=== PATIENT | male | born 1965 | race Caucasian/White ===

== ENCOUNTER 2019-02-01 21:52 | Emergency (ER) | payer OTHER ==
[~2019-02-01] VITALS: Ht 190.5 cm; Wt 80.7 kg
[~2019-02-01 21:52] MED LIST: ACET500; AMOX500 PO; ASPI325; CEPH500 PO; CYCL10 PO; DICY20 PO; HYDACE5 PO; HYDACE7.5; IBUP400 PO; IBUP800 PO; LORA1 PO; LORA2 PO; METR500 PO; OXYACE5T PO; OXYACE7.5T PO; PENVK250 PO; PENVK500 PO; PRED20 PO; PROACE100 PO; PROM25 PO; RANI150 PO; RXLORA1 PO; RXOXYACE PO; RXTRAM50 PO; SUBOXONE 12 MG1 EACH; SUBOXONE 8 MG-1 EACH SL; SULTRIDS PO; TRAM50 PO
== END 2019-02-01 23:34 | disposition left against medical advice (07) ==
LOC: ER 21:52
DX: Z53.21 Procedure and treatment not carried out due to patient leaving prior to being seen by health care provider (principal); R07.81 Pleurodynia
CPT/HCPCS: 71101

== ENCOUNTER 2019-11-22 15:42 | Inpatient (IN) | payer OTHER ==
[~2019-11-22] VITALS: Ht 190.5 cm; Wt 78.2 kg
[2019-11-22 17:18] LABS: BASOPHILS ABSOLUTE AUTO 0.08 K/mm3 (0.00-0.23); BASOPHILS PERCENT AUTO 1 % (0-2); EOSINOPHILS ABSOLUTE AUTO 0.11 K/mm3 (0.00-0.68); EOSINOPHILS PERCENT AUTO 1 % (0-6); Hematocrit 52.8 % (37.0-53.0); Hemoglobin 17.3 g/dL (13.5-17.5); IMMATURE GRAN ABSOLUTE AUTO 0.03 K/mm3 (0.00-0.10); IMMATURE GRAN PERCENT AUTO 0 % (0-1); LYMPHOCYTES PERCENT AUTO 16 % (21-46); MONOCYTES PERCENT AUTO 11 % (4-13); Mean Corpuscular HGB 31.6 pg (26.0-34.0); Mean Corpuscular HGB Conc 32.8 g/dL (31.5-36.5); Mean Corpuscular Volume 96 fL (80-100); Mean Platelet Volume 10.3 fL (9.1-12.4); NEUTROPHILS ABSOLUTE AUTO 7.35 K/mm3 (1.96-9.15); NEUTROPHILS PERCENT AUTO 72 % (41-73); Platelet Count 231 K/mm3 (150-400); RDW Coefficient Variation 15.8 % (11.7-14.2); RDW Standard Deviation 55.1 fL (35.1-46.3); Red Blood Cell Count 5.48 M/mm3 (4.30-5.90); White Blood Cell Count 10.27 K/mm3 (4.00-11.30)
[2019-11-22 17:31] LABS: Creatine Kinase MB 23.1 ng/mL (0.0-3.6); Creatine Kinase MB Index 6.3 (0.0-4.0)
[2019-11-22 18:01] LABS: U Amphetamine Screen DETECTED; U Barbituate Screen Not Detected; U Benzodiazapine Screen Not Detected; U Buprenorphine Screen Not Detected; U Cannabinoids Screen Not Detected; U Cocaine Screen Not Detected; U Methadone Screen Not Detected; U Methamphetamine Screen DETECTED; U Opiates Screen Not Detected; U Oxycodone Screen Not Detected; U Propoxyphene Screen Not Detected
--- NOTE | 2019-11-22 19:13 | NUR ---
ADMIT NOTE PT REPORT RECEIVED. PT ARRIVED VIA GURNEY ACCOMAPNIED BY RN. PT ALERT AND ORIENTED. ANXIOUS AND SOB. PT ABLE TO TRANSFER SELF TO BED SBA. GAIT STEADY. VSS. PT EXPRESSING EXTREME ANXIETY. CALLED DR MUNIZ. ORDER RECEIVED FOR ATIVAN. RELATED TO DR MUNIZ THAT ECHO AND NUC. MED HAD ALREADY LEFT FOR TODAY. PT IS UNABLE TO LAY FLAT AT ALL. FAN PROVIDED AT BEDSIDE FOR COMFORT. BROTHER HERE TO SEE HIM. VOIDING WELL PER URINAL. ATE DINNER. CONTINUE POT.
--- NOTE | 2019-11-22 19:15 | NUR ---
Assumed care Pt presents in bed with labored breathing, SOB, tachypnea. BP stable, HR is sinus tach at 100-110. pt with moderate anxiety, fidgety and restless. Brother at bedside with pt. 0.5mg ativan previously given by day shift per orders, pt remains restless and anxious after medication administration. Pt expressing tearful regret for using meth to this RN. Therapeutic communication provided. Pt educated on pursed lip breathing and techniques to slow resp rate. Saturations maintaining >93% on 2L NC. See shift assessmet for detailed assessment.
--- NOTE | 2019-11-22 20:15 | NUR ---
RT in room assessing pt. Bipap placed on pt d/t continued increased work of breathing and tachypnea. Settings 09/10 at 21 fio2.
--- NOTE | 2019-11-22 20:30 | NUR ---
Pt not tolerating BIPAP d/t anxiety. NC placed back on pt. 0.5 mg ativan given per orders. RT aware.
--- NOTE | 2019-11-22 22:39 | NUR ---
Pt with continued work of breathing. Lungs clear throughout, end exp wheeze noted. RT called and made aware. Pt sleeping on and off since ativan administration Pt desaturates to 85% when sleep, o2 increased to 3.5L. Will continue to montior.
--- NOTE | 2019-11-22 23:09 | NUR ---
Provider called and made aware of change in pt condition, new crackles to bilat bases, wheezes throughout, work of breathing. Orders received for 20mg IV lasix, 1 mg Ativan and attempting to place pt on BIPAP again with RT. Will continue to monitor.
--- NOTE | 2019-11-22 23:46 | NUR ---
Pt currently resting on BIPAP, eyes closed. 18G PIV placed to LFA, S/L.
[2019-11-23 02:08] LABS: BASOPHILS ABSOLUTE AUTO 0.08 K/mm3 (0.00-0.23); BASOPHILS PERCENT AUTO 1 % (0-2); EOSINOPHILS PERCENT AUTO 2 % (0-6); Hemoglobin 17.6 g/dL (13.5-17.5); IMMATURE GRAN ABSOLUTE AUTO 0.04 K/mm3 (0.00-0.10); IMMATURE GRAN PERCENT AUTO 0 % (0-1); LYMPHOCYTES ABSOLUTE AUTO 1.62 K/mm3 (0.84-5.20); LYMPHOCYTES PERCENT AUTO 14 % (21-46); MONOCYTES PERCENT AUTO 10 % (4-13); Mean Corpuscular HGB 31.8 pg (26.0-34.0); Mean Corpuscular HGB Conc 33.8 g/dL (31.5-36.5); Mean Corpuscular Volume 94 fL (80-100); NEUTROPHILS ABSOLUTE AUTO 8.27 K/mm3 (1.96-9.15); NEUTROPHILS PERCENT AUTO 73 % (41-73); Platelet Count 222 K/mm3 (150-400); RDW Coefficient Variation 15.8 % (11.7-14.2); RDW Standard Deviation 53.7 fL (35.1-46.3); Red Blood Cell Count 5.54 M/mm3 (4.30-5.90); White Blood Cell Count 11.31 K/mm3 (4.00-11.30)
[2019-11-23 02:25] LABS: Bun/Creatinine Ratio 27.6 (12.0-20.0); Calcium, Blood 8.3 mg/dL (8.5-10.1); Creatinine, Blood 1.52 mg/dL (0.60-1.20); Potassium, Blood 3.6 mmol/L (3.5-5.5)
--- NOTE | 2019-11-23 06:09 | NUR ---
Shift Summary Pt with VSS throughout shift. Moderate anxiety at start of shift. 1mg ativan given and pt able to sleep on and off throughout night. Pt with continued labored breathing pattern that is more pronounced when awake. Breathing pattern has improved since approx 2330. Wheezes throughout lung whitman, crackles have cleared from bases with lasix administration and BIPAP placement. Pt tolerated BIPAP for approx 8 hours. See nurse notes for documentation on respiratory events. Overall respiratory status has improved related to decreased work of breathing, respiratory rate wnl, oxygenation Pt voiding in urinal at bedside. Will continue to monitor until day RN assumes care
--- NOTE | 2019-11-23 07:55 | NUR ---
AM NOTE... ASSUMED CARE OF PT APROX 0700, PT IS A&Ox4 AND WAS ADMITTED FOR NEW ONSET CHF. PT IS IN ST AT 110. TRACE EDEMA IS NOTED TO THE BLE. L/S CLEAR T/O PT IS ON 3.5L NC AT 95%. RR 20-24 EVEN BUT LABORED W/ACCESSORY MUSCLE USE. BT PRESENT AND HYPOACTIVE ABD IS SOFT AND NONTENDER TO PALP. PT DENIES CHEST PAIN AT THIS TIME BUT C/O OF 8/10 LEFT BACK/FLANK PAIN THAT STARTED ON ADMIT PER THE PT. CARDIOLOGY PROVIDER AT THE BEDSIDE, PT AND PROVIDER SIGNED CONSENT FOR ANGIO THIS AM. PT STATED HIS UNDERSTANDING OF PROCEDURE. PT IS NPO AT THIS TIME. WILL CONTINUE TO MONITOR.
[2019-11-23 08:48] LABS: International Normalized Ratio 1.04; Prothrombin Time Results 11.1 Sec (9.7-11.5)
--- NOTE | 2019-11-23 10:50 | NUR ---
PT UPDATE... PT CALLED THIS RN INTO THE ROOM, STATING THAT HE WAS "DEPRESSED, ANXIOUS, HUNGRY AND I NEED A SMOKE." THIS RN OFFERED THE PT ORDERED ATIVAN AND A NICOTINE PATCH, PT DECLINED BOTH. THE PT THEN STATED "I THINK I AM JUST GOING TO LEAVE." THIS RN EDUCATED THE PT ON HIS RIGHTS TO REFUSE THE PROCEDURE THIS AFTERNOON AND HIS RIGHT TO LEAVE AMA. PT STATED "IF THEY DON'T TAKE ME FOR MY PROCEDURE BY 12PM I AM LEAVING." CHARGE NURSE NOTIFIED. WILL CONTINUE TO MONITOR.
--- NOTE | 2019-11-23 12:58 | NUR ---
Patient is resting in bed but easily awakens to the sound of his name. Patient immediately tells me that he is thinking of leaving AMA because he is so frustrated that he can't eat or go outside to smoke. Patient verbalizes how angry he is and so we talk about his options and what is best for him at present. I then redirect to spiritual questions. Patient has spiritual distress from feeling far from God, admittedly, from his own doing. We talk about how to be right with God and how to have peace about the afterlife and the here and now. I ask patient if I could pray for him and states that that would be nice. I gladly provide prayer. Patient is very tearful during the prayer and shows signs of improved peace and reduced aggitation. Patient, at least for the moment is agrreeable to stay and wait for his ECHO. I will continue to remain available to patient and family.
[2019-11-23] MEDS ORDERED: ASPI81CH PO (15:49)
[2019-11-23] MEDS ORDERED: AMLO5 PO (15:49)
[2019-11-23] MEDS ORDERED: ACET325 PO (15:49)
[2019-11-23] MEDS ORDERED: LOSA25 PO (15:50)
[2019-11-23] MEDS ORDERED: LIPITOR80 MG PO (15:50)
[2019-11-23] MEDS ORDERED: METO25ER PO (15:51)
[2019-11-23] MEDS ORDERED: Nicoderm Cq1 EAC1 TOP (15:52)
[2019-11-23] MEDS ORDERED: TORSE20 PO (15:53)
== END 2019-11-23 16:22 | disposition left against medical advice (07) | DRG 280 ==
LOC: ER 15:42 → PCU 16:31
PROVIDERS: Emergency Medicine; Internal Medicine Cardiovascular Disease; ADMIT Family Medicine
DX: I21.4 Non-ST elevation (NSTEMI) myocardial infarction (principal); I50.21 Acute systolic (congestive) heart failure; I13.0 Hypertensive heart and chronic kidney disease with heart failure and stage 1 through stage 4 chronic kidney disease, or unspecified chronic kidney disease; F15.10 Other stimulant abuse, uncomplicated; F17.210 Nicotine dependence, cigarettes, uncomplicated; G47.33 Obstructive sleep apnea (adult) (pediatric); N18.3 Chronic kidney disease, stage 3 (moderate)
CPT/HCPCS: 36415; 78582; 80048; 82550; 82553; 84484; 85025; 85610; 85730; 86850; 86900; 86901; 93005; 93010; 94660; 94762; 96374; 99285-25; A9270; A9270-GY; A9540; A9558; C8929; J1644; J1650; J1940; J2060; J7030; Q9957

== ENCOUNTER 2020-08-11 22:53 | Emergency (ER) | payer OTHER ==
[~2020-08-11] VITALS: Ht 190.5 cm; Wt 95.2 kg
[~2020-08-11 22:53] MED LIST changes: +ACET325 PO; +AMLO5 PO; +ASPI81CH PO; +B-1100 M1 PO; +FOLI1 PO; +Hair, Skin & N1 EACH PO; +LIPITOR80 MG PO; +LOSA25 PO; +METO25ER PO; +Nicoderm Cq1 EAC1 TOP; +ONDA4ODT MM; +SPIR25 PO; +TORSE20 PO
[2020-08-12 01:58] LABS: BASOPHILS ABSOLUTE AUTO 0.07 K/mm3 (0.00-0.23); BASOPHILS PERCENT AUTO 1 % (0-2); EOSINOPHILS ABSOLUTE AUTO 0.08 K/mm3 (0.00-0.68); EOSINOPHILS PERCENT AUTO 1 % (0-6); Hematocrit 50.6 % (37.0-53.0); Hemoglobin 16.4 g/dL (13.5-17.5); IMMATURE GRAN ABSOLUTE AUTO 0.05 K/mm3 (0.00-0.10); IMMATURE GRAN PERCENT AUTO 1 % (0-1); LYMPHOCYTES ABSOLUTE AUTO 1.22 K/mm3 (0.84-5.20); LYMPHOCYTES PERCENT AUTO 12 % (21-46); MONOCYTES ABSOLUTE AUTO 1.62 K/mm3 (0.16-1.47); MONOCYTES PERCENT AUTO 16 % (4-13); Mean Corpuscular HGB 27.2 pg (26.0-34.0); Mean Corpuscular HGB Conc 32.4 g/dL (31.5-36.5); Mean Corpuscular Volume 84 fL (80-100); Mean Platelet Volume 10.1 fL (9.1-12.4); NEUTROPHILS ABSOLUTE AUTO 7.38 K/mm3 (1.96-9.15); NEUTROPHILS PERCENT AUTO 71 % (41-73); Platelet Count 253 K/mm3 (150-400); RDW Coefficient Variation 19.9 % (11.7-14.2); RDW Standard Deviation 57.4 fL (35.1-46.3); Red Blood Cell Count 6.03 M/mm3 (4.30-5.90); White Blood Cell Count 10.42 K/mm3 (4.00-11.30)
[2020-08-12 02:20] LABS: Albumin, Blood 3.4 g/dL (3.4-5.0); Bilirubin, Total 2.1 mg/dL (0.1-1.0); Calcium, Blood 8.6 mg/dL (8.5-10.1); Creatinine, Blood 1.78 mg/dL (0.60-1.20); Globulin, Blood 3.5 g/dL (2.2-4.0); Potassium, Blood 4.4 mmol/L (3.5-5.5); Total Protein, Blood 6.9 g/dL (6.4-8.2)
== END 2020-08-12 02:32 | disposition home or self-care (01) ==
LOC: ER 22:53
PROVIDERS: Emergency Medicine
DX: N50.89 Other specified disorders of the male genital organs (principal); R60.0 Localized edema; I50.9 Heart failure, unspecified; F17.210 Nicotine dependence, cigarettes, uncomplicated; Z88.5 Allergy status to narcotic agent; Z88.0 Allergy status to penicillin; Z88.6 Allergy status to analgesic agent; Z79.82 Long term (current) use of aspirin; Z79.899 Other long term (current) drug therapy
CPT/HCPCS: 36415; 80053; 83880; 85025; 99284

== ENCOUNTER 2020-08-15 01:01 | Emergency (ER) | payer OTHER ==
[~2020-08-15] VITALS: Ht 190.5 cm; Wt 83.9 kg
[2020-08-15 02:16] LABS: BASOPHILS ABSOLUTE AUTO 0.07 K/mm3 (0.00-0.23); BASOPHILS PERCENT AUTO 1 % (0-2); EOSINOPHILS ABSOLUTE AUTO 0.31 K/mm3 (0.00-0.68); EOSINOPHILS PERCENT AUTO 3 % (0-6); Hematocrit 51.4 % (37.0-53.0); Hemoglobin 16.2 g/dL (13.5-17.5); IMMATURE GRAN ABSOLUTE AUTO 0.03 K/mm3 (0.00-0.10); IMMATURE GRAN PERCENT AUTO 0 % (0-1); LYMPHOCYTES ABSOLUTE AUTO 1.08 K/mm3 (0.84-5.20); LYMPHOCYTES PERCENT AUTO 11 % (21-46); MONOCYTES ABSOLUTE AUTO 1.52 K/mm3 (0.16-1.47); MONOCYTES PERCENT AUTO 15 % (4-13); Mean Corpuscular HGB Conc 31.5 g/dL (31.5-36.5); Mean Corpuscular Volume 86 fL (80-100); Mean Platelet Volume 9.6 fL (9.1-12.4); NEUTROPHILS ABSOLUTE AUTO 7.01 K/mm3 (1.96-9.15); NEUTROPHILS PERCENT AUTO 70 % (41-73); Platelet Count 229 K/mm3 (150-400); RDW Coefficient Variation 20.1 % (11.7-14.2); RDW Standard Deviation 60.1 fL (35.1-46.3); Red Blood Cell Count 5.99 M/mm3 (4.30-5.90); White Blood Cell Count 10.02 K/mm3 (4.00-11.30)
[2020-08-15 02:37] LABS: Albumin, Blood 3.1 g/dL (3.4-5.0); Albumin/Globulin Ratio 0.8 (0.8-1.8); Bilirubin, Total 1.3 mg/dL (0.1-1.0); Bun/Creatinine Ratio 30.5 (12.0-20.0); Calcium, Blood 8.3 mg/dL (8.5-10.1); Creatinine, Blood 1.54 mg/dL (0.60-1.20); Globulin, Blood 3.8 g/dL (2.2-4.0); Potassium, Blood 3.8 mmol/L (3.5-5.5); Total Protein, Blood 6.9 g/dL (6.4-8.2); Troponin I 0.126 ng/mL (0.000-0.040)
[2020-08-15] MEDS ORDERED: Cleocin HCl300 MG PO (03:06)
== END 2020-08-15 03:14 | disposition home or self-care (01) ==
LOC: ER 01:01
PROVIDERS: Emergency Medicine
DX: L03.116 Cellulitis of left lower limb (principal); L03.115 Cellulitis of right lower limb; R60.0 Localized edema; I50.9 Heart failure, unspecified; F17.210 Nicotine dependence, cigarettes, uncomplicated; Z79.82 Long term (current) use of aspirin; Z88.0 Allergy status to penicillin; Z88.6 Allergy status to analgesic agent; Z88.5 Allergy status to narcotic agent; Z79.899 Other long term (current) drug therapy
CPT/HCPCS: 36415; 71046; 80053; 84484; 85025; 93005; 93010; 96365; 96375; 99284-25

== ENCOUNTER 2021-05-12 22:34 | Emergency (ER) | payer OTHER ==
[~2021-05-12] VITALS: Ht 190.5 cm; Wt 90.7 kg
[~2021-05-12 22:34] MED LIST changes: +Cleocin HCl300 MG PO
== END 2021-05-13 00:06 | disposition left against medical advice (07) ==
LOC: ER 22:34
DX: R06.02 Shortness of breath (principal); I51.7 Cardiomegaly; Z53.20 Procedure and treatment not carried out because of patient's decision for unspecified reasons
CPT/HCPCS: 71046

== ENCOUNTER 2021-06-28 12:05 | Inpatient (IN) | payer OTHER ==
[~2021-06-28] VITALS: Ht 190.5 cm; Wt 105.5 kg
[~2021-06-28 12:05] MED LIST changes: -AMLO5 PO; -FOLI1 PO; -LOSA25 PO; -TORSE20 PO
[2021-06-28 12:38] LABS: BASOPHILS ABSOLUTE AUTO 0.04 K/mm3 (0.00-0.23); BASOPHILS PERCENT AUTO 0 % (0-2); EOSINOPHILS PERCENT AUTO 0 % (0-6); Hematocrit 46.3 % (37.0-53.0); Hemoglobin 15.6 g/dL (13.5-17.5); IMMATURE GRAN ABSOLUTE AUTO 0.08 K/mm3 (0.00-0.10); IMMATURE GRAN PERCENT AUTO 1 % (0-1); LYMPHOCYTES ABSOLUTE AUTO 0.46 K/mm3 (0.84-5.20); LYMPHOCYTES PERCENT AUTO 3 % (21-46); MONOCYTES ABSOLUTE AUTO 1.92 K/mm3 (0.16-1.47); MONOCYTES PERCENT AUTO 12 % (4-13); Mean Corpuscular HGB 26.5 pg (26.0-34.0); Mean Corpuscular HGB Conc 33.7 g/dL (31.5-36.5); Mean Corpuscular Volume 79 fL (80-100); Mean Platelet Volume 9.9 fL (9.1-12.4); NEUTROPHILS ABSOLUTE AUTO 14.17 K/mm3 (1.96-9.15); NEUTROPHILS PERCENT AUTO 85 % (41-73); Platelet Count 300 K/mm3 (150-400); RDW Coefficient Variation 20.9 % (11.7-14.2); RDW Standard Deviation 54.9 fL (35.1-46.3); Red Blood Cell Count 5.89 M/mm3 (4.30-5.90); White Blood Cell Count 16.67 K/mm3 (4.00-11.30)
[2021-06-28 12:55] LABS: Albumin/Globulin Ratio 0.8 (0.8-1.8); Bilirubin, Total 4.3 mg/dL (0.1-1.0); Bun/Creatinine Ratio 35.9 (12.0-20.0); Creatinine, Blood 1.92 mg/dL (0.60-1.20); Globulin, Blood 3.6 g/dL (2.2-4.0); Potassium, Blood 4.1 mmol/L (3.5-5.5); Total Protein, Blood 6.6 g/dL (6.4-8.2)
[2021-06-28] MEDS ORDERED: AMLO5 PO (13:04)
[2021-06-28] MEDS ORDERED: FOLI1 PO (13:04)
[2021-06-28] MEDS ORDERED: LOSA25 PO (13:04)
[2021-06-28] MEDS ORDERED: TORSE20 PO (13:04)
[2021-06-28 16:18] LABS: SARS-Cov-2 (COVID-19) PCR, MMC NEGATIVE (NEGATIVE)
[2021-06-28 17:11] LABS: Source, Urine Clean Catch
[2021-06-28 17:26] LABS: Appearance, Urine Clear (Clear); Color, Urine Yellow (P-Yellow)
[2021-06-28 17:27] LABS: Bilirubin, Urine Neg (Neg); Blood, Urine Neg (Neg); Glucose Qualitative, Urine Neg (Neg); Ketones, Urine Neg (Neg); Leukocyte Esterase, Urine Neg (Neg); Nitrite, Urine Neg (Neg); Protein, Urine Neg (Neg); Specific Gravity, Urine 1.015 (1.003-1.022); Urobilinogen, Urine NORM (Normal)
[2021-06-28 22:02] LABS: Bun/Creatinine Ratio 36.6 (12.0-20.0); Calcium, Blood 9.3 mg/dL (8.5-10.1); Creatinine, Blood 1.94 mg/dL (0.60-1.20); Magnesium, Blood 2.6 mg/dL (1.6-2.4); Phosphorus, Blood 5.6 mg/dL (2.5-4.9); Potassium, Blood 3.9 mmol/L (3.5-5.5)
[2021-06-28 22:04] LABS: International Normalized Ratio 1.81; Prothrombin Time Results 18.9 Sec (9.7-11.5)
[2021-06-29 00:19] LABS: U Amphetamine Screen DETECTED; U Barbituate Screen Not Detected; U Benzodiazapine Screen Not Detected; U Buprenorphine Screen Not Detected; U Cannabinoids Screen Not Detected; U Cocaine Screen Not Detected; U Methadone Screen Not Detected; U Methamphetamine Screen DETECTED; U Opiates Screen Not Detected; U Oxycodone Screen Not Detected; U Phencyclidine Screen Not Detected; U Propoxyphene Screen Not Detected
[2021-06-29 04:34] LABS: BASOPHILS ABSOLUTE AUTO 0.05 K/mm3 (0.00-0.23); BASOPHILS PERCENT AUTO 0 % (0-2); EOSINOPHILS ABSOLUTE AUTO 0.01 K/mm3 (0.00-0.68); EOSINOPHILS PERCENT AUTO 0 % (0-6); Hematocrit 46.9 % (37.0-53.0); Hemoglobin 15.3 g/dL (13.5-17.5); IMMATURE GRAN ABSOLUTE AUTO 0.04 K/mm3 (0.00-0.10); IMMATURE GRAN PERCENT AUTO 0 % (0-1); LYMPHOCYTES ABSOLUTE AUTO 0.57 K/mm3 (0.84-5.20); LYMPHOCYTES PERCENT AUTO 4 % (21-46); MONOCYTES ABSOLUTE AUTO 1.86 K/mm3 (0.16-1.47); MONOCYTES PERCENT AUTO 12 % (4-13); Mean Corpuscular HGB 26.9 pg (26.0-34.0); Mean Corpuscular HGB Conc 32.6 g/dL (31.5-36.5); Mean Corpuscular Volume 83 fL (80-100); Mean Platelet Volume 9.7 fL (9.1-12.4); NEUTROPHILS ABSOLUTE AUTO 12.58 K/mm3 (1.96-9.15); NEUTROPHILS PERCENT AUTO 83 % (41-73); Platelet Count 264 K/mm3 (150-400); RDW Coefficient Variation 21.2 % (11.7-14.2); RDW Standard Deviation 58.6 fL (35.1-46.3); Red Blood Cell Count 5.68 M/mm3 (4.30-5.90); White Blood Cell Count 15.11 K/mm3 (4.00-11.30)
[2021-06-29 04:58] LABS: Albumin, Blood 2.8 g/dL (3.4-5.0); Albumin/Globulin Ratio 0.7 (0.8-1.8); Bilirubin, Total 4.9 mg/dL (0.1-1.0); Bun/Creatinine Ratio 35.5 (12.0-20.0); Calcium, Blood 9.2 mg/dL (8.5-10.1); Globulin, Blood 4.2 g/dL (2.2-4.0); Potassium, Blood 4.2 mmol/L (3.5-5.5)
[2021-06-29 10:35] LABS: Automated BF RBC Count 0.015 M/mm3 (0-0); Automated BF WBC Count 0.193 K/mm3 (0-999); Body Fluid WBC Count 193 /mm3 (0-999); RBC Count, Body Fluid 15000 /mm3 (0-0)
[2021-06-29 10:51] LABS: Protein, Body Fluid 3.8 g/dL
[2021-06-29 10:54] LABS: Glucose, Body Fluid 91 mg/dL
[2021-06-29 10:58] LABS: Albumin, Body Fluid 1.5 g/dL
[2021-06-29 11:40] LABS: Color, Body Fluid Red (None-Yellow); Total Cell Count, Body Fluid 100
[2021-06-29 11:41] LABS: Appearance, Body Fluid Clear (Clear)
[2021-06-30 01:07] LABS: HBSAG SCREEN Negative (Negative); HEP B CORE AB, IGM Negative (Negative); HEP B CORE AB, TOT Positive (Negative); HEP C VIRUS AB <0.1 (0.0-0.9)
[2021-06-30 08:43] LABS: BASOPHILS ABSOLUTE AUTO 0.03 K/mm3 (0.00-0.23); BASOPHILS PERCENT AUTO 0 % (0-2); EOSINOPHILS ABSOLUTE AUTO 0.08 K/mm3 (0.00-0.68); EOSINOPHILS PERCENT AUTO 1 % (0-6); Hematocrit 45.5 % (37.0-53.0); Hemoglobin 14.9 g/dL (13.5-17.5); IMMATURE GRAN ABSOLUTE AUTO 0.04 K/mm3 (0.00-0.10); IMMATURE GRAN PERCENT AUTO 0 % (0-1); LYMPHOCYTES ABSOLUTE AUTO 0.51 K/mm3 (0.84-5.20); LYMPHOCYTES PERCENT AUTO 4 % (21-46); MONOCYTES ABSOLUTE AUTO 2.12 K/mm3 (0.16-1.47); MONOCYTES PERCENT AUTO 16 % (4-13); Mean Corpuscular HGB 26.6 pg (26.0-34.0); Mean Corpuscular HGB Conc 32.7 g/dL (31.5-36.5); Mean Corpuscular Volume 81 fL (80-100); NEUTROPHILS ABSOLUTE AUTO 10.48 K/mm3 (1.96-9.15); NEUTROPHILS PERCENT AUTO 79 % (41-73); Platelet Count 241 K/mm3 (150-400); RDW Coefficient Variation 21.5 % (11.7-14.2); RDW Standard Deviation 57.1 fL (35.1-46.3); White Blood Cell Count 13.26 K/mm3 (4.00-11.30)
[2021-06-30 09:04] LABS: Albumin, Blood 2.6 g/dL (3.4-5.0); Albumin/Globulin Ratio 0.7 (0.8-1.8); Bilirubin, Total 3.1 mg/dL (0.1-1.0); Bun/Creatinine Ratio 40.1 (12.0-20.0); Calcium, Blood 8.8 mg/dL (8.5-10.1); Creatinine, Blood 1.77 mg/dL (0.60-1.20); Globulin, Blood 3.8 g/dL (2.2-4.0); Magnesium, Blood 2.7 mg/dL (1.6-2.4); Potassium, Blood 3.5 mmol/L (3.5-5.5); Total Protein, Blood 6.4 g/dL (6.4-8.2)
[2021-06-30] MEDS ORDERED: BUSP5 PO (11:19)
[2021-06-30] MEDS ORDERED: CARV3.125 PO (11:19)
[2021-06-30] MEDS ORDERED: CEPH500 PO (11:19)
[2021-06-30] MEDS ORDERED: FURO40 PO (11:20)
== END 2021-06-30 12:50 | disposition home or self-care (01) | DRG 727 ==
LOC: ER 12:05 → MEDS 16:48
PROVIDERS: Emergency Medicine; Internal Medicine; Physician Assistant; ADMIT Hospitalist
PROC: 0W9G3ZX Drainage of Peritoneal Cavity, Percutaneous Approach, Diagnostic (ICD-10-PCS; principal; 2021-06-29)
DX: N49.2 Inflammatory disorders of scrotum (principal); I50.43 Acute on chronic combined systolic (congestive) and diastolic (congestive) heart failure; K76.7 Hepatorenal syndrome; I42.9 Cardiomyopathy, unspecified; R18.8 Other ascites; N17.9 Acute kidney failure, unspecified; Z20.822 Contact with and (suspected) exposure to COVID-19; F17.210 Nicotine dependence, cigarettes, uncomplicated; K74.60 Unspecified cirrhosis of liver; N18.2 Chronic kidney disease, stage 2 (mild); I08.1 Rheumatic disorders of both mitral and tricuspid valves; F15.10 Other stimulant abuse, uncomplicated; I25.2 Old myocardial infarction; Z88.0 Allergy status to penicillin; Z88.5 Allergy status to narcotic agent; Z88.8 Allergy status to other drugs, medicaments and biological substances; Z79.899 Other long term (current) drug therapy; Z79.82 Long term (current) use of aspirin
CPT/HCPCS: 36415; 49083; 71045; 74177; 80048; 80053; 81003; 82042; 82140; 82945; 82947; 83605; 83735; 83880; 84100; 84157; 84443; 85025; 85610; 85730; 86140; 86704; 86708; 86803; 86850; 86900; 86901; 87340; 89051; 93975; 94760; 94762; 96365-59; 96366; 96368; 96375; 99285-25; A9270; C8929; J0690; J1170; J1650; J1940; J2185; J3010; J3370; J7030; J7050; P9041; Q9957; Q9967; U0004

== ENCOUNTER 2021-07-07 12:07 | Inpatient (IN) | payer OTHER ==
[~2021-07-07] VITALS: Ht 190.5 cm; Wt 102.7 kg
[~2021-07-07 12:07] MED LIST changes: +AMLO5 PO; +BUSP5 PO; +CARV3.125 PO; +FOLI1 PO; +FURO40 PO; +LOSA25 PO; +TORSE20 PO
[2021-07-07 12:34] LABS: BASOPHILS ABSOLUTE AUTO 0.06 K/mm3 (0.00-0.23); BASOPHILS PERCENT AUTO 0 % (0-2); EOSINOPHILS ABSOLUTE AUTO 0.06 K/mm3 (0.00-0.68); EOSINOPHILS PERCENT AUTO 0 % (0-6); Hematocrit 50.7 % (37.0-53.0); Hemoglobin 16.6 g/dL (13.5-17.5); IMMATURE GRAN ABSOLUTE AUTO 0.16 K/mm3 (0.00-0.10); IMMATURE GRAN PERCENT AUTO 1 % (0-1); LYMPHOCYTES ABSOLUTE AUTO 0.85 K/mm3 (0.84-5.20); LYMPHOCYTES PERCENT AUTO 5 % (21-46); MONOCYTES ABSOLUTE AUTO 1.46 K/mm3 (0.16-1.47); MONOCYTES PERCENT AUTO 8 % (4-13); Mean Corpuscular HGB 26.9 pg (26.0-34.0); Mean Corpuscular HGB Conc 32.7 g/dL (31.5-36.5); Mean Corpuscular Volume 82 fL (80-100); Mean Platelet Volume 10.4 fL (9.1-12.4); NEUTROPHILS ABSOLUTE AUTO 16.49 K/mm3 (1.96-9.15); NEUTROPHILS PERCENT AUTO 86 % (41-73); Platelet Count 234 K/mm3 (150-400); RDW Coefficient Variation 23.2 % (11.7-14.2); RDW Standard Deviation 62.9 fL (35.1-46.3); Red Blood Cell Count 6.17 M/mm3 (4.30-5.90); White Blood Cell Count 19.08 K/mm3 (4.00-11.30)
[2021-07-07 12:54] LABS: Albumin, Blood 2.7 g/dL (3.4-5.0); Albumin/Globulin Ratio 0.6 (0.8-1.8); Bilirubin, Total 3.3 mg/dL (0.1-1.0); Calcium, Blood 8.9 mg/dL (8.5-10.1); Creatinine, Blood 1.32 mg/dL (0.60-1.20); Globulin, Blood 4.7 g/dL (2.2-4.0); Potassium, Blood 4.4 mmol/L (3.5-5.5); Total Protein, Blood 7.4 g/dL (6.4-8.2)
[2021-07-07 13:25] LABS: PCO2 Arterial 33.2 mmHg (35-45); PO2 Arterial 74.2 mmHg (80-100)
[2021-07-07 13:41] LABS: SARS-Cov-2 (COVID-19) PCR, MMC NEGATIVE (NEGATIVE)
[2021-07-07 14:52] LABS: Source, Urine Catheter
[2021-07-07 15:00] LABS: Appearance, Urine Clear (Clear); Bilirubin, Urine Neg (Neg); Blood, Urine 1+ (Neg); Color, Urine Yellow (P-Yellow); Glucose Qualitative, Urine Neg (Neg); Ketones, Urine Neg (Neg); Leukocyte Esterase, Urine 1+ (Neg); Nitrite, Urine Neg (Neg); Protein, Urine 2+ (Neg); Urobilinogen, Urine 1+ (Normal)
[2021-07-07 15:10] LABS: Bacteria Rare /hpf; Red Blood Cells, Urine 0-2 /hpf (0-2); Squamous Epithelial Cells Rare /hpf (Few); White Blood Cells, Urine 0-2 /hpf (0-5)
[2021-07-07 15:11] LABS: Renal Epithelial Few /hpf (0-Rare)
[2021-07-07 18:30] LABS: U Amphetamine Screen DETECTED; U Barbituate Screen Not Detected; U Benzodiazapine Screen Not Detected; U Buprenorphine Screen Not Detected; U Cannabinoids Screen Not Detected; U Cocaine Screen Not Detected; U Methadone Screen Not Detected; U Methamphetamine Screen DETECTED; U Opiates Screen Not Detected; U Oxycodone Screen Not Detected; U Phencyclidine Screen Not Detected; U Propoxyphene Screen Not Detected
[2021-07-07 20:11] LABS: Percent Saturation 10.4 % (20.0-50.0)
--- NOTE | 2021-07-07 21:26 | NUR ---
PATIENT IS A NEW ADMIT FROM THE ED. ONE ASSIST TRANSFER FROM [facility] TO BED. ALLEN CATHETER PRESENT AND PLACED IN ED. AXOX 3 AND HIGHLY ANXIOUS. REPORTS HE DID METH THIS MORNING AND DAILY FOR THE LAST FIVE YEARS. NOTED SWELLING TO SCROTUM/PENIS WITH PURLENT DRAINAGE AND ESCHAR. ON 6L O2 NC. TELEMETRY PLACED AND TECH REPORTS NR 95. FOOD PROVIDED. ORIENT TO ROOM AND CALL LIGHT SYSTEM. DENIES CHEST PAIN AND N/V. DENIES WATCHING TV AT THIS TIME. CALL LIGHT IN REACH.
--- NOTE | 2021-07-08 03:34 | NUR ---
SHIFT SUMMARY PATIENT ANXIOUS T/O SHIFT WITH HX OF DAILY METH USE X FIVE YEARS. AXOX 3 WITH GARBLED SPEECH. BEDREST. ALLEN PATENT AND DRAINING FOR SCROTAL/PENIS SWELLING. VSS/AFEBRILE. REPORTS SCROTAL PAIN WITH MOVEMENT AND DENIES TYLENOL FOR PAIN MEDICATION. ON 6L O2 NC. CEDS AND REFUSES NICOTINE PATCH. DENIES N/V. PIV REMAINS INTACT. IV ABX INFUSED. Micrima REPORTS NSR 95. ON PHONE THROUGHOUT SHIFT. CALL LIGHT IN REACH. BED IN LOWEST POSITION. WILL CONTINUE TO MONITOR UNTIL DAY SHIFT NURSE ASSUMES CARE.
[2021-07-08 05:09] LABS: Hematocrit 47.7 % (37.0-53.0); Hemoglobin 15.6 g/dL (13.5-17.5); Mean Corpuscular HGB 26.7 pg (26.0-34.0); Mean Corpuscular HGB Conc 32.7 g/dL (31.5-36.5); Mean Corpuscular Volume 82 fL (80-100); Mean Platelet Volume 10.1 fL (9.1-12.4); Platelet Count 236 K/mm3 (150-400); RDW Standard Deviation 61.4 fL (35.1-46.3); Red Blood Cell Count 5.85 M/mm3 (4.30-5.90)
--- NOTE | 2021-07-08 05:27 | NUR ---
HOSPITALIST DR MUNIZ ORDERED HYDROXYZINE 25 MG Q6 PRN FOR ANXIETY AND NICOTINE PATCH 14 MG DAILY FOR CEDS 1/2 PACK.
[2021-07-08 05:30] LABS: BAND PERCENT MAN 6 % (0-8); BASOPHILS ABSOLUTE MAN 0.16 K/mm3 (0.00-0.23); BASOPHILS PERCENT MAN 1 % (0-2); EOSINOPHILS ABSOLUTE MAN 0.16 K/mm3 (0.00-0.68); EOSINOPHILS PERCENT MAN 1 % (0-6); LYMPHOCYTES ABSOLUTE MAN 0.67 K/mm3 (0.84-5.20); LYMPHOCYTES PERCENT MAN 4 % (21-46); MONOCYTES ABSOLUTE MAN 0.67 K/mm3 (0.16-1.47); MONOCYTES PERCENT MAN 4 % (4-13); NEUTROPHILS ABSOLUTE MAN 15.12 K/mm3 (1.96-9.15); SEG NEUTROPHILS PERCENT MAN 84 % (41-73); TOTAL CELLS COUNTED 100
[2021-07-08 05:50] LABS: Albumin, Blood 2.4 g/dL (3.4-5.0); Albumin/Globulin Ratio 0.5 (0.8-1.8); Bun/Creatinine Ratio 26.8 (12.0-20.0); Calcium, Blood 8.9 mg/dL (8.5-10.1); Creatinine, Blood 1.42 mg/dL (0.60-1.20); Globulin, Blood 4.4 g/dL (2.2-4.0); Potassium, Blood 4.2 mmol/L (3.5-5.5); Total Protein, Blood 6.8 g/dL (6.4-8.2)
--- NOTE | 2021-07-08 11:00 | NUR ---
TELE UPDATE TELE INFORMED THIS RN OF 25 BEAT RUN V-TACH. PATIENT ASYMPTOMATIC AND RESTING IN BED. NOTIFIED DR. ROSADO, NO NEW ORDERS. PRIMARY RN AWARE.
--- NOTE | 2021-07-08 18:44 | NUR ---
PT IS CONFUSED,UNCOOPERATIVE,COMBATTIVE,SLURRED SPEECH,PT HAVE EDEMA T/O BODY,BILATERAL THIGH AND ARM,SCROTUM IS ALSO SWOLLEN AND NECROTIC,PT HAVE SOFT WRIST BILATERALLY,PT ON 6L NC,PT IN BED, PT MEDICATED PER FOR EMAR FOR ANXIETY,PT ON TELE SINUS TACHY RATE 105 PER GAS WELL PUMPER,PT ALLEN INTACT,PT IN BED,BED ALARM ON ,CALL LIGHT IN REACH WILL CONTINUE TO MONITOR.
--- NOTE | 2021-07-08 20:27 | NUR ---
HOSPITALIST DR LOVE ORDERED IV ATIVAN 1 MG Q6 FOR INCREASE AGITATION WITH METH WITHDRAWALS. RESTRAINTS KIKI VEST AND BILATERAL SOFT WRIST ORDERED.
--- NOTE | 2021-07-08 20:53 | NUR ---
PATIENT RESTING/SLEEPIMG AFTER IV ATIVAN 1 MG FOR ANXIETY.
--- NOTE | 2021-07-09 03:27 | NUR ---
SHIFT SUMMARY PATIENT IS AXOX 2 CONFUSED, AGITATED AND COMBATIVE AT TIMES. ANASARCA. IN KIKI VEST AND BILATERAL SOFT WRIST RESTRAINTS PER ORDER. IV ATIVAN 1 MG GIVEN FOR ANXIETY. EFFECTIVE WITH PATIENT ABLE TO SLEEP/REST FOR SIX HOURS THAN AGITATED AND BACK TO SLEEP AGAIN. INCOMPREHENSIBLE SPEECH MOST OF THE TIME. CONTINUES TO PULL OFF TELEMETRY LEADS IN REACH. TECH REPORTS SR W/BBB @ 83. NO V-TACH RUNS PER MEDICAID BUSINESS ANALYST. ON 6L O2 NC AND WORKS CANUAL OFF WITH AGITATION MOVEMENT OF HEAD. SCROTUM/PENIS EDEMATOUS WITH NECROTIC TISSUE PRESENT. ALLEN PATENT AND DRAINING TO GRAVITY. VSS/AFEBRILE. DENIES CHEST PAIN AND N/V. BED IN LOWEST POSITION. WILL CONTINUE TO MONITOR UNTIL DAY SHIFT NURSE ASSUME CARE.
[2021-07-09 05:30] LABS: BASOPHILS ABSOLUTE AUTO 0.05 K/mm3 (0.00-0.23); BASOPHILS PERCENT AUTO 0 % (0-2); EOSINOPHILS ABSOLUTE AUTO 0.07 K/mm3 (0.00-0.68); EOSINOPHILS PERCENT AUTO 1 % (0-6); Hematocrit 46.3 % (37.0-53.0); Hemoglobin 15.2 g/dL (13.5-17.5); IMMATURE GRAN ABSOLUTE AUTO 0.07 K/mm3 (0.00-0.10); IMMATURE GRAN PERCENT AUTO 1 % (0-1); LYMPHOCYTES ABSOLUTE AUTO 0.87 K/mm3 (0.84-5.20); LYMPHOCYTES PERCENT AUTO 6 % (21-46); MONOCYTES ABSOLUTE AUTO 1.51 K/mm3 (0.16-1.47); MONOCYTES PERCENT AUTO 11 % (4-13); Mean Corpuscular HGB 27.2 pg (26.0-34.0); Mean Corpuscular HGB Conc 32.8 g/dL (31.5-36.5); Mean Corpuscular Volume 83 fL (80-100); Mean Platelet Volume 10.4 fL (9.1-12.4); NEUTROPHILS ABSOLUTE AUTO 11.19 K/mm3 (1.96-9.15); NEUTROPHILS PERCENT AUTO 81 % (41-73); Platelet Count 237 K/mm3 (150-400); RDW Coefficient Variation 23.4 % (11.7-14.2); Red Blood Cell Count 5.59 M/mm3 (4.30-5.90); White Blood Cell Count 13.76 K/mm3 (4.00-11.30)
[2021-07-09 05:48] LABS: Albumin, Blood 2.3 g/dL (3.4-5.0); Albumin/Globulin Ratio 0.5 (0.8-1.8); Bilirubin, Total 3.3 mg/dL (0.1-1.0); Bun/Creatinine Ratio 32.6 (12.0-20.0); Calcium, Blood 8.7 mg/dL (8.5-10.1); Creatinine, Blood 1.32 mg/dL (0.60-1.20); Globulin, Blood 4.3 g/dL (2.2-4.0); Potassium, Blood 4.3 mmol/L (3.5-5.5); Total Protein, Blood 6.6 g/dL (6.4-8.2)
[2021-07-09 09:27] LABS: Base Excess Venous 3.9 mmol/L; Bicarbonate Venous 26.5 mmol/L (24.0-30.0); PCO2 Venous 49.6 mmHg (38-42); pH Blood Venous 7.38 (7.34-7.37)
[2021-07-09 10:08] LABS: HBSAG SCREEN Negative (Negative); HEP B CORE AB, TOT Positive (Negative); HEP C VIRUS AB <0.1 (0.0-0.9)
--- NOTE | 2021-07-09 11:19 | NUR ---
PATIENT HAS BEEN TOO LETHARGIC TO TAKE ORAL MEDICATIONS. DR DIXON NOTIFIED AND WAS TOLD DR WILL CHANGE ORAL MEDICATIONS TO IV MEDICATIONS IF POSSIBLE.
--- NOTE | 2021-07-09 17:49 | NUR ---
SHIFT SUMMARY PATIENT IS ALERT TO SELF ONLY. PATIENT HAS BEEN DROWSY AND OFF AND ON CONSCIOUS. PATIENT DID NOT GET ANY PO MEDICATIONS TODAY AND WAS NOTIFIED OF THIS. PATIENT WAS NOT ALERT AND COULD NOT STAY AWAKE LONG ENOUGH TO TAKE MEDICATIONS. PATIENT HAS BEEN MORE ALERT FROM 1600 ON AND HAS BEEN ABLE TO CONSUME LIQUIDS AND DINNER WITH ASSISTANCE FROM THE GUARDEN. PALATIVE CARE IS AWARRE OF PATIENTS CODE STATUS AND IS WORKING WITH FAMILY TO GET THT CHANGED. VITAL SIGNS REVIEWED. WILL CONTINUE TO MONITOR UNTIL END OF SHIFT.
--- NOTE | 2021-07-09 18:04 | NUR ---
Pt appears confused, lethargic. Able to answer very basic questions, but forgets the conversation within minutes. He is currently in restraints. I spoke to his mom Erna, who was tearful on the phone. She reports both he and his twin brother Harris live with her, but Harris has an unpredictable work schedule, so he isn't available at the time of this phone call. I did give her the Palliative Care office phone number, she will attempt to call tomorrow when Harris is home to further discuss pt's options. Unfortunately, due to his current health issues, there are no good options for him, other than comfort. He has CHF, Cardiomyopathy, CKD, liver cirrhosis, cellulitis and other issues. His EF is 15%. Pt's mother Erna states she is not able to make a decision right now on his code status, and prefers he remain "full code", even while verbalizing understanding that his prognosis is very poor. I let her know there will be people working tomorrow too in Palliative Care, and ecouraged her to call this office tomorrow when her other son is home to discuss decision making.
[2021-07-09 19:02] LABS: Magnesium, Blood 2.6 mg/dL (1.6-2.4); Phosphorus, Blood 4.1 mg/dL (2.5-4.9)
--- NOTE | 2021-07-09 19:04 | NUR ---
NURSE NOTE PATIENT WAS FOUND TO HAVE BLEEDING IN SCROTUM REGION. DR NOTIFIED. BEDDING AND PATIENT WAS BANDAGED UP AND WRAPPED UP.
--- NOTE | 2021-07-09 21:00 | NUR ---
RECEIVED PT IN BED EXTREMELY AGITATED. RESTLESS, FIDGETING IN BED. COMFORT MEASURES PROVIDED. PO FLUIDS OFFERED AND REPOSITIONED FOR COMFORT. PT REMAINS EXTREMELY AGITATED. ATIVAN PRN GIVEN. WILL CONTINUE TO MONITOR.
--- NOTE | 2021-07-10 01:54 | NUR ---
PT REMAINS AGITATED DESPITE ALL PRN MEDS. RESTLESS IN BED AND REMOVING TELE. ATTEMPTS TO REMOVE ALLEN. DR. MUNIZ WAS NOTIFIED OF PT'S CONDITION. ORDER GIVEN FOR ADDITIONAL DOSE OF ATIVAN X1. PO FLUIDS GIVEN. CONTINUE WITH SAFETY MEASURES.
--- NOTE | 2021-07-10 04:52 | NUR ---
PT HAS BEEN RESTLESS AND AGITATED ALL SHIFT. NO RELIEF FROM PRN MEDS. O2 6L NC IN PLACE SATURATING 94-97%. PT IS NON-REDIRECTABLE. SCROTUM WITH EDEMA. BACTROBAN CREAM APPLIED TO ULCERATED AREAS. ALLEN PATENT. VEST AND BILATERAL SOFT WRIST RESTRAINTS IN PLACE FOR SAFETY. PT TRANSFERRED TO ROOM 351 FOR CAMERA MONITORING. NO EVENT ON TELE MONITOR. TRANSFERRED TO CARE OF APRIL WHITE.
[2021-07-10 05:30] LABS: BASOPHILS ABSOLUTE AUTO 0.07 K/mm3 (0.00-0.23); BASOPHILS PERCENT AUTO 1 % (0-2); EOSINOPHILS ABSOLUTE AUTO 0.13 K/mm3 (0.00-0.68); EOSINOPHILS PERCENT AUTO 1 % (0-6); Hematocrit 49.4 % (37.0-53.0); Hemoglobin 15.9 g/dL (13.5-17.5); IMMATURE GRAN ABSOLUTE AUTO 0.06 K/mm3 (0.00-0.10); IMMATURE GRAN PERCENT AUTO 1 % (0-1); LYMPHOCYTES ABSOLUTE AUTO 0.69 K/mm3 (0.84-5.20); LYMPHOCYTES PERCENT AUTO 6 % (21-46); MONOCYTES ABSOLUTE AUTO 1.49 K/mm3 (0.16-1.47); MONOCYTES PERCENT AUTO 12 % (4-13); Mean Corpuscular HGB Conc 32.2 g/dL (31.5-36.5); Mean Corpuscular Volume 84 fL (80-100); NEUTROPHILS ABSOLUTE AUTO 9.99 K/mm3 (1.96-9.15); NEUTROPHILS PERCENT AUTO 80 % (41-73); Platelet Count 270 K/mm3 (150-400); RDW Coefficient Variation 23.7 % (11.7-14.2); RDW Standard Deviation 66.1 fL (35.1-46.3); Red Blood Cell Count 5.89 M/mm3 (4.30-5.90); White Blood Cell Count 12.43 K/mm3 (4.00-11.30)
[2021-07-10 06:43] LABS: Albumin, Blood 2.4 g/dL (3.4-5.0); Anion Gap 9 mmol/L (6-16); Blood Urea Nitrogen 48 mg/dL (8-24); Bun/Creatinine Ratio 34.5 (12.0-20.0); CO2, Blood 24 mmol/L (21-32); Calcium, Blood 8.4 mg/dL (8.5-10.1); Chloride, Blood 101 mmol/L (98-108); Creatinine, Blood 1.39 mg/dL (0.60-1.20); Glomerular Filtration Rate 53 (60-); Glucose, Blood 90 mg/dL (70-99); Phosphorus, Blood 4.5 mg/dL (2.5-4.9); Potassium, Blood 5.1 mmol/L (3.5-5.5); Sodium, Blood 134 mmol/L (136-145)
[2021-07-10 10:32] LABS: International Normalized Ratio 1.79; Prothrombin Time Results 18.1 Sec (9.7-11.5)
--- NOTE | 2021-07-10 10:43 | NUR ---
Spoke with sister Samira review of patient notes from physician evaluation and car shifter assessment. Also review of diagnaosis and prognosis and pt chance of serious suffering. will review with physician and family need for hospice.
--- NOTE | 2021-07-10 18:26 | NUR ---
SHIFT SUMMARY PT ALERT TO SELF AND FAMILY. PT IS CURRENTLY IN VEST AND WRIST RESTRAINTS. HE IS VERY ANXIOUS AND DOES NOT SEEM TO RESPOND TO ANXIETY MEDICATION. HE CONSTANTLY PULLS AGAINST HIS RESTRAINTS AND SOMETIMES IS ABLE TO GET OUT OF THEM. HE ALSO PULLS AT HIS IV AND ALLEN. FAMILY HAS BEEN CONTACTED ABOUT THE PT GOING ON HOSPICE. AFTER I SPOKE WITH HIS SISTER SHE EXPRESSED THAT HE CANNOT COME HOME ON HOSPICE DUE TO THE FAMILY NOT BEING ABLE TO CARE FOR HIM. 3+ EDEMA NOTED T/O, ESPECIALLY IN HIS SCROTUM, ARMS, AND FACE. HE IS QUITE CONFUSED AND DOES BEST WHEN THERE IS ANOTHER PERSON IN THE ROOM. WILL REPORT TO NOC RN.
[2021-07-11 04:57] LABS: BASOPHILS ABSOLUTE AUTO 0.05 K/mm3 (0.00-0.23); BASOPHILS PERCENT AUTO 0 % (0-2); EOSINOPHILS PERCENT AUTO 1 % (0-6); Hematocrit 47.1 % (37.0-53.0); Hemoglobin 15.4 g/dL (13.5-17.5); IMMATURE GRAN ABSOLUTE AUTO 0.05 K/mm3 (0.00-0.10); IMMATURE GRAN PERCENT AUTO 0 % (0-1); LYMPHOCYTES ABSOLUTE AUTO 0.73 K/mm3 (0.84-5.20); LYMPHOCYTES PERCENT AUTO 6 % (21-46); MONOCYTES ABSOLUTE AUTO 1.67 K/mm3 (0.16-1.47); MONOCYTES PERCENT AUTO 14 % (4-13); Mean Corpuscular HGB 27.1 pg (26.0-34.0); Mean Corpuscular HGB Conc 32.7 g/dL (31.5-36.5); Mean Corpuscular Volume 83 fL (80-100); Mean Platelet Volume 10.1 fL (9.1-12.4); NEUTROPHILS ABSOLUTE AUTO 9.24 K/mm3 (1.96-9.15); NEUTROPHILS PERCENT AUTO 78 % (41-73); Platelet Count 252 K/mm3 (150-400); RDW Coefficient Variation 23.4 % (11.7-14.2); RDW Standard Deviation 62.7 fL (35.1-46.3); Red Blood Cell Count 5.69 M/mm3 (4.30-5.90); White Blood Cell Count 11.84 K/mm3 (4.00-11.30)
[2021-07-11 05:14] LABS: Albumin, Blood 2.3 g/dL (3.4-5.0); Anion Gap 6 mmol/L (6-16); Blood Urea Nitrogen 50 mg/dL (8-24); Bun/Creatinine Ratio 35.2 (12.0-20.0); CO2, Blood 30 mmol/L (21-32); Calcium, Blood 8.4 mg/dL (8.5-10.1); Chloride, Blood 100 mmol/L (98-108); Creatinine, Blood 1.42 mg/dL (0.60-1.20); Glomerular Filtration Rate 52 (60-); Glucose, Blood 84 mg/dL (70-99); Phosphorus, Blood 4.4 mg/dL (2.5-4.9); Potassium, Blood 4.2 mmol/L (3.5-5.5); Sodium, Blood 136 mmol/L (136-145)
--- NOTE | 2021-07-11 05:46 | NUR ---
END OF SHIFT SUMMARY: Pt is agitated and restless. Rested better tonight compares to last night. Still in bilateral soft wrist restraints and vest restraints. Pt still able to wiggle himself out os wrist restraints. Answers orientation questions right but has episodes of confusion and non sensible speech. Tong intact and draining to gravity. Incontinent with stool. abd rounded and taut, pt denies tenderness. No acute events overnight. Vitals WNL. Bed alarm on, call light within reach, bed in lowest position. Pt being monitored on camera.
--- NOTE | 2021-07-11 08:37 | NUR ---
PATIENT SCREAMING OUT DEMANDS THIS AM WITH MUMBLED WORDS, [address] RUIZ TELE HAD A 3.2 SECOND PAUSE, VSS AND REVEIWED, NON SYMPTOMATIC, SLEEP APNEA, PATIENT FALLS ASLEEP IN MID SENTENCE, WAKES STARTLED AND PULLING AT RESTRAINTS, NO DIFFICULTIES SWALLOWING, WCTM, BED ALARM ON
--- NOTE | 2021-07-11 08:40 | NUR ---
LEFT FOREARM IV, FLUSHED WITH BLOOD FLASH, OLD LEAKED BLOOD DRIED AND OLD
--- NOTE | 2021-07-11 09:59 | NUR ---
0930 REPORTED VENTRICULAR STAND STILL AT 4.99 SECONDS, PATIENT SHANGED TO DNR AND COMFORT CARE, TM
--- NOTE | 2021-07-11 11:04 | NUR ---
PATEINT CONTINUALLY THRASHING IN BED PULLING AGAINST KIKI VEST, SPEECH MUMBLED, COMPLAINED OF PAIN, MEDICATED, WCTM, REPOSITIONING SELF IN BED, NONCONSOLABLE OR REDIRECTABLE
--- NOTE | 2021-07-11 12:15 | NUR ---
0930 wrist restraints off, brenda vest still on
--- NOTE | 2021-07-11 14:29 | NUR ---
PATIENT BECAME AGGRESSIVE, MEDICATED WITH CYRUS LIQUID, PATIENT SPIT IT OUT, MEDICATED WITH HALDOL 5MG IM, RESTING NOW, KIKI VEST ON, WCTM
--- NOTE | 2021-07-11 14:36 | NUR ---
PATIETN GRABBING AT AIR, REFUSING TO PUT NC O2 BACK ON
--- NOTE | 2021-07-11 16:00 | NUR ---
Summary of multiple case conferences with pt's RN, Humberto, and phone calls with family members, primarily pt's proxy decision maker, his mom, Erna Joya. Due to patients altered mental status rendering him incapable of processing and understanding the complex medical information that he would need to consider to make health care decisions for himself at this time, Family was asked to consider his multiple ES comorbidities, current altered mentation and s/s of suffering to help determine the goals of care. Pal Care has been in conversation with multiple siblings and pt's mom, updating and providing information on his status over the past several days. By [facility] [place] policy, in the absence of an AD naming a proxy medical decision maker, pt's surrogate decision maker would be pt's mom, as there is no spouse or children available as proxies. Mom requests that we place pt on comfort care now, and hospice if pt could be d/c'd to care in the community. She is clear that family members are unable to provide hospice care in their homes or pt's home but is hoping that he could be cared for in another facility with hospice support if able to be d/c'd from hospital. Mom planned to come in for a visit today and was informed that three additional family members would be able to visit per current policy for comfort care patients. Comfort care orders obtained and entered. All orders were discussed with pt's bedside RN. I made two visits to pt's room today. This am he was sleeping and appeared calm and comfortable. I did not disturb him. When I returned to check on s/s management, pt was agitated and had slid out the side of his bed. Multiple staff attending to pt at that time and a group of us were able to get pt safely back in bed. Comfort care orders reviewed and use of Roxanol soln, haldol soln and PO ativan crushed to be used SL, discussed with RN and fire extinguisher charger. Plan am f/u visit to assess for s/s mgmt and need for any medication adjustments, communication with family, case conf with RN, and CM.
--- NOTE | 2021-07-12 04:56 | NUR ---
END OF SHIFT SUMMARY: Pt on Comfort care. Been unresponsive most of the night. Family notified of pt status, mother and sister came by to visit pt. Breaths rare and shallow. Thready unsteady pulse. medicated for air hunger and secretions per eMAR. Reposioned and performed mouth care regularly. Continuing to monitor pt for the rest of shift.
--- NOTE | 2021-07-12 06:48 | NUR ---
Pt's sister, Marion Venegas, would also like to be updated on pt's status. Her number is [phone].
--- NOTE | 2021-07-12 10:12 | NUR ---
ASSUMED CARE OF PATIENT AT 0715. HE IS NON RESPONSIVE. EXTREMITIES ARE COOL TO TOUCH AND MOTTLING HAS STARTED. RR 3-7 PER MINUTE, LONG PERIODS OF APNEA. OXYGEN AT 2 L/MIN NC FOR COMFORT. ALLEN DRAINING MINIMAL GUSTAVO URINE. NO SIGNS OF PAIN OR DISCOMFORT.
--- NOTE | 2021-07-12 13:30 | NUR ---
Met with bedside RN, assessed pt's condition. He is apneic, with up to a minute pauses between breaths. He is no longer waking up, and appears calm and relaxed. No new changes to his care plan today. Placed call to pt's mom to update her on pt condition. She is planning to come see pt patient today, states pt's twin brother is not, as this is "too painful" for him. He wants to "remember" him the way he was when he last saw him.
--- NOTE | 2021-07-12 16:21 | NUR ---
PATIENT AT 1555, QUITE PEACEFULLY. PASTOR Cristina RODRÍGUEZ AT BEDSIDE WITH PT'S MOTHER. DR. MOHAN, POLISHER APPRENTICE, PALLIATIVE CARE RN Carl GUZMAN, AND PT'S SISTER DEEPTI NOTIFIED. PT'S MOTHER NOTIFIED PT'S TWIN BROTHER JUSTINO. FAMILY HAS CHOSEN [facility] FOR MORTUARY CARE.
--- NOTE | 2021-07-12 16:27 | NUR ---
Spiritual care visit conducted. Patient's mother, Erna is bedside. I conduct a life review of patient. I provide a prayer and as I am praying patient peacefully stops breathing. CHRISTOPHER Anderson immediately responds and after a few minutes calls TOD at 1555. I provide another prayer and grief support. I assist Erna in selecting [facility] in [place]. Erna's friend is on her way to pick Erna up.
--- NOTE | 2021-07-12 18:13 | NUR ---
PATIENT DISCHARGED TO MORTUARY AT 1750.
== END 2021-07-12 15:55 | DRG 871 ==
LOC: ER 12:07 → MEDS 17:43
PROVIDERS: Family Medicine; Physician Assistant; Student in an Organized Health Care Education/Training Program; ADMIT Internal Medicine
DX: A41.9 Sepsis, unspecified organism (principal); I50.43 Acute on chronic combined systolic (congestive) and diastolic (congestive) heart failure; J96.00 Acute respiratory failure, unspecified whether with hypoxia or hypercapnia; G92.8 Other toxic encephalopathy; I42.9 Cardiomyopathy, unspecified; F05 Delirium due to known physiological condition; F15.13 Other stimulant abuse with withdrawal; B37.49 Other urogenital candidiasis; E87.4 Mixed disorder of acid-base balance; Z51.5 Encounter for palliative care; Z66 Do not resuscitate; Z20.822 Contact with and (suspected) exposure to COVID-19; N49.2 Inflammatory disorders of scrotum; I87.8 Other specified disorders of veins; F41.9 Anxiety disorder, unspecified; R65.20 Severe sepsis without septic shock; F17.210 Nicotine dependence, cigarettes, uncomplicated; I08.1 Rheumatic disorders of both mitral and tricuspid valves; N18.30 Chronic kidney disease, stage 3 unspecified; K74.60 Unspecified cirrhosis of liver; Z88.5 Allergy status to narcotic agent; Z88.0 Allergy status to penicillin; Z88.6 Allergy status to analgesic agent; Z86.19 Personal history of other infectious and parasitic diseases; Z98.890 Other specified postprocedural states; Z79.899 Other long term (current) drug therapy; I25.2 Old myocardial infarction; Z78.1 Physical restraint status
CPT/HCPCS: 36415; 36600; 51702; 71045; 74176; 80053; 80069; 81001; 82140; 82728; 82803; 83540; 83550; 83605; 83735; 83880; 84100; 85025; 85610; 86317; 86704; 86708; 86803; 87040; 87070; 87075; 87077; 87086; 87186; 87205; 87340; 93005; 93010; 96365-59; 96366-59; 96375-59; 99285-25; A9270; J0690; J1630; J1650; J1940; J2060; J2185; J2270; J3370; J7050; U0004